=== PATIENT | male | born 1960 | race African-American/Black ===

== ENCOUNTER 2021-08-24 14:29 | Observation (INO) | payer OTHER ==
[2021-08-24 15:00] LABS: #Monocytes 0.5 10x3/uL (0.0-1.1); #Neutrophils 2.2 10x3/uL (1.5-8.4); %Eosinophils 0.5 % (0.0-6.0); %Lymphocytes 32.5 % (18.0-47.0); %Monocytes 11.8 % (0.0-10.0); Mean Corpuscular HGB CONC 31.6 g/dL (32.0-36.0); Mean Corpuscular Volume 88.4 fl (81.2-95.1); Mean Platelet Volume 11.4 fl (7.4-10.4); Platelet Count 172 10x3/uL (150-450); RBC Distribution Width 13.9 % (11.5-14.5); Red Blood Cell (RBC) Count 5.36 10x6/uL (4.32-5.72); White Blood Cell (WBC) Count 4.2 10x3/uL (3.5-10.5)
[2021-08-24 15:20] LABS: ALT (SGPT) 70 U/L (8-55); AST (SGOT) 49 U/L (5-34); Albumin 4.1 g/dL (3.5-5.0); Alkaline Phosphatase 105 U/L (40-110); Anion Gap 14 mmol/L (10-20); BUN (Urea Nitrogen) 12 mg/dL (8.4-25.7); Bilirubin, Total 0.4 mg/dL (0.2-1.2); CK (CPK) 258 U/L (30-200); Calc. Creatinine Clearance 0 mL/min (70-130); Calcium 9.1 mg/dL (7.8-10.44); Carbon Dioxide 27 mmol/L (22-29); Chloride 100 mmol/L (98-107); Globulin 4.3 g/dL (2.4-3.5); Glucose 272 mg/dL (70-105); Lipase 34 U/L (8-78); Potassium 4.9 mmol/L (3.5-5.1); Protein, Total 8.4 g/dL (6.0-8.3); Sodium 136 mmol/L (136-145)
[2021-08-24] MEDS ORDERED: Aspirin Chewable 81 MG TAB ONE (16:09)
[2021-08-24] MEDS ORDERED: Ondansetron PF 4 MG/2 ML Vial IVP PRN (17:42)
[2021-08-24] MEDS ORDERED: Ondansetron ODT 4 MG TAB PO PRN (17:42)
[2021-08-24] MEDS ORDERED: Acetaminophen 650 MG Suppository PR PRN (17:42)
[2021-08-24] MEDS ORDERED: Acetaminophen 325 MG TAB PO PRN (17:42)
[2021-08-24] MEDS ORDERED: Dextrose 50% Abboject 50 ML SYRINGE SLOW IVP PRN (17:57)
[2021-08-24] MEDS ORDERED: Insulin Regular 300 UNITS/3 ML VIAL SC PRN (17:57)
[2021-08-24] MEDS ORDERED: Dextrose 5% in Water 1,000 ML IV PRN (17:57)
[2021-08-24 18:02] LABS: Troponin I Less than 0.010 ng/mL (< 0.028)
[2021-08-24] MEDS ORDERED: Aspirin 325 MG TAB PO SCH (20:45)
[2021-08-24] MEDS ORDERED: Atorvastatin Calcium 40 MG TAB PO SCH (21:00)
[2021-08-24] MEDS: Heparin 5,000 UNITS/ML VIAL SC SCH (21:42)
[2021-08-24 21:51] LABS: Troponin I 0.014 ng/mL (< 0.028)
[2021-08-25 03:59] LABS: #Eosinphils 0.2 10x3/uL (0.0-0.5); #Monocytes 0.4 10x3/uL (0.0-1.1); #Neutrophils 1.6 10x3/uL (1.5-8.4); %Basophils 0.8 % (0.0-2.0); %Eosinophils 6.1 % (0.0-6.0); %Lymphocytes 41.3 % (18.0-47.0); %Neutrophils 40.5 % (40.0-75.0); Hemoglobin 13.5 g/dL (13.5-17.5); Mean Corpuscular HGB CONC 32.4 g/dL (32.0-36.0); Mean Corpuscular Hemoglobin 28.3 pg (27.0-33.0); Mean Corpuscular Volume 87.4 fl (81.2-95.1); Mean Platelet Volume 11.9 fl (7.4-10.4); Platelet Count 162 10x3/uL (150-450); RBC Distribution Width 14.1 % (11.5-14.5); Red Blood Cell (RBC) Count 4.77 10x6/uL (4.32-5.72); White Blood Cell (WBC) Count 3.9 10x3/uL (3.5-10.5)
[2021-08-25 04:15] LABS: Anion Gap 14 mmol/L (10-20); BUN (Urea Nitrogen) 11 mg/dL (8.4-25.7); Calc. Creatinine Clearance 0 mL/min (70-130); Calcium 8.9 mg/dL (7.8-10.44); Carbon Dioxide 23 mmol/L (22-29); Cardiac Risk 5.5 (Less than 4.5); Chloride 102 mmol/L (98-107); Cholesterol 164 mg/dl (< 200 Desired); Glucose 314 mg/dL (70-105); HDL Cholesterol 30 mg/dL (>60 Neg Risk); LDL Cholesterol, Calculated 108 mg/dL; Potassium 4.5 mmol/L (3.5-5.1); Sodium 134 mmol/L (136-145); Triglycerides 129 mg/dL (Less than 150)
[2021-08-25] MEDS: Insulin Regular 300 UNITS/3 ML VIAL SC PRN ×3 (06:25→17:09)
[2021-08-25] MEDS: Heparin 5,000 UNITS/ML VIAL SC SCH (08:21)
[2021-08-25] MEDS ORDERED: Aspirin Chewable 81 MG TAB PO SCH (09:00)
[2021-08-25 17:30] VITALS: BP 141/84; TEMP 97.6
[2021-08-25] MEDS ORDERED: Latanoprost 0.005% Ophth Soln 2.5 ml Bottle EA EYE SCH (21:00)
[2021-08-26] MEDS ORDERED: Lisinopril 2.5 MG TAB PO SCH (09:00)
== END 2021-08-25 19:13 | disposition home or self-care (01) ==
LOC: EEVIPCON 14:29 → CSHERS 14:29 → CSHTELE 19:27
PROVIDERS: ADMIT Student in an Organized Health Care Education/Training Program; ATTEND Nurse Practitioner Family
DX: R07.2 Precordial pain (principal); I10 Essential (primary) hypertension; E11.9 Type 2 diabetes mellitus without complications; E78.5 Hyperlipidemia, unspecified; F20.9 Schizophrenia, unspecified; R00.0 Tachycardia, unspecified; H40.9 Unspecified glaucoma; Z79.82 Long term (current) use of aspirin; Z79.899 Other long term (current) drug therapy; Z79.84 Long term (current) use of oral hypoglycemic drugs; Z88.2 Allergy status to sulfonamides; Z88.8 Allergy status to other drugs, medicaments and biological substances; Z88.6 Allergy status to analgesic agent
CPT/HCPCS: 36415; 36416; 71045; 80048; 80053; 80061; 82550; 83690; 84484; 85025; 85379; 93005; 93010; 94760; 96372; G0378; J1644; J1815